=== PATIENT | male | born 1960 | race Caucasian/White ===

== ENCOUNTER 2020-07-09 10:50 | Outpatient (REF) | payer MEDICARE, MEDICAID, SELFPAY ==
--- NOTE | 2020-07-09 11:38 | XR_ITS ---
EXAMINATION: XR KNEE, LEFT CLINICAL INFORMATION: Left knee arthritis COMPARISON: None TECHNIQUE: AP standing view of both knees and sunrise and lateral view of the left knee of the left knee. FINDINGS: Left knee: There is slight varus angulation of the left knee joint. No fracture or dislocation is seen. There is severe arthritis of the medial patellofemoral and femoral tibial joints with joint space narrowing and osteophyte formation. The contour of the medial femoral condyle appears irregular questionable for changes related to old trauma. There is medial and lateral degenerative meniscal calcification. There is a large joint effusion. Standing AP view of the right knee is unremarkable. IMPRESSION: Severe left knee arthritis and large joint effusion.
== END 2020-07-09 10:51 | disposition home or self-care (01) ==
LOC: HO.XRAY 10:50
PROVIDERS: PCP Internal Medicine; Visit Provider Orthopaedic Surgery
DX: M17.12 Unilateral primary osteoarthritis, left knee (principal)
CPT/HCPCS: 20610; 73562; 99214; J1100

== ENCOUNTER 2020-08-31 08:36 | Outpatient (REF) | payer MEDICARE, MEDICAID, SELFPAY ==
[2020-08-31 09:15] LABS: MANUAL DIFF FLAG NO
--- NOTE | 2020-08-31 09:16 | MR_ITS ---
EXAMINATION: MR ABDOMEN WITHOUT AND WITH CONTRAST CLINICAL INFORMATION: Elevated bilirubin. Dilated bile ducts. COMPARISON: Previous MRI of the abdomen June 2020, abdominal ultrasound May [address] of the abdomen December 2012 TECHNIQUE: MR abdomen was performed without and with use of 10 mL intravenous Gadavist gadolinium contrast. Postcontrast images are performed in multiphase dynamic sequences. Imaging was performed in 3 planes. MRCP sequences were also performed. FINDINGS: LUNG BASES: The visualized lung bases are unremarkable. LIVER, GALLBLADDER, AND BILIARY TREE: The liver is normal in size, smooth in contour, and normal in signal. No focal hepatic lesion or biliary ductal dilatation is present. The gallbladder has been removed. There is intra and extrahepatic biliary duct dilatation. The common bile duct measures 1.5 cm. The common bile duct is dilated down to the head of the pancreas, and tapers smoothly. No common bile duct stone or mass is seen. PANCREAS: There are atrophic changes of the head and neck of the pancreas. The remaining body and tail of the pancreas is normal-appearing. This demonstrates normal signal and enhancement. No focal lesion or pancreatic duct dilatation is seen. SPLEEN: The spleen is enlarged measuring 15.0 cm in length. ADRENAL GLANDS: Normal. KIDNEYS AND URETERS: There is a small right renal cyst. GASTROINTESTINAL TRACT: No bowel obstruction. No ascites or fluid collection. ABDOMINAL WALL: No significant hernia is appreciated. LYMPH NODES: There are small periportal lymph nodes. No enlarged lymph nodes are seen. VASCULAR: Unremarkable. OSSEOUS STRUCTURES: There are postsurgical changes to the lower lumbar spine. MR/MR abdomen wo/w con IMPRESSION: 1. Intra and extrahepatic biliary duct dilatation. The common bile duct measures 1.5 cm and is dilated down to the head of the pancreas. The distal common bile duct tapers smoothly. No stone or mass is seen. Post cholecystectomy. 2. Atrophy of the head and neck of the pancreas. The pancreas is otherwise unremarkable. No main pancreatic duct dilatation seen.
[2020-08-31 09:17] LABS: Basophils Percent Auto 0.5 % (0-2); Eosinophils Absolute Auto 0.2 X10*3/uL (0.0-0.4); Eosinophils Percent Auto 2.8 % (0-4); Hematocrit 43.7 % (42-52); Hemoglobin 15.3 g/dl (14.0-18.0); Imm Gran Abs Auto 0.01 X10*3/uL (0.00-0.03); Imm Gran Pct Auto 0.2 % (0.0-0.4); Lymphocytes Absolute Auto 1.8 X10*3/uL (1.2-4.9); Lymphocytes Percent Auto 31.1 % (20-40); Mean Corpuscular Hemoglobin 32.8 pg (27.0-33.0); Mean Corpuscular Volume 93.6 fL (80-98); Mean Platelet Volume 8.9 fL (9.4-12.4); Monocytes Absolute Auto 0.5 X10*3/uL (0.1-1.2); Monocytes Percent Auto 9.5 % (2-11); Neutrophils Absolute Auto 3.2 X10*3/uL (2.0-8.3); Neutrophils Percent Auto 55.9 % (45-73); Platelet Count 144 X10*3/uL (160-400); Red Blood Count 4.67 X10*6/uL (4.60-5.80); Red Cell Distribution Width 12.7 % (11.0-16.0); White Blood Count 5.7 X10*3/uL (4.8-10.8)
[2020-08-31 09:53] LABS: Alanine Aminotransferase 17 U/L (0-40); Albumin Level 3.7 g/dL (3.5-5.0); Alkaline Phosphatase 95 U/L (39-117); Anion Gap 11 (12-20); Aspartate Amino Transferase 26 U/L (5-37); Bilirubin Direct 0.8 mg/dL (0.0-0.5); Bilirubin Total 2.5 mg/dL (0.0-1.0); Blood Urea Nitrogen 16 mg/dL (9-16); Carbon Dioxide 28 mmol/L (22-29); Chloride 105 mmol/L (96-108); Estimated Glomerular Filt Rate > 60; Glucose Random 99 mg/dL (60-115); Potassium 4.3 mmol/l (3.3-5.1); Sodium 140 mmol/L (135-145); Total Protein 7.2 g/dL (6.5-8.0)
== END 2020-08-31 08:37 | disposition home or self-care (01) ==
LOC: HO.MRI 08:36
PROVIDERS: PCP Internal Medicine; Visit Provider Physician Assistant
DX: R10.11 Right upper quadrant pain (principal); R17 Unspecified jaundice
CPT/HCPCS: 36415; 74183; 80053; 82248; 85025; A9585

== ENCOUNTER 2023-12-25 08:43 | Outpatient (REF) | payer MEDICARE, MEDICAID, SELFPAY ==
--- NOTE | ~2023-12-25 | XR_ITS ---
EXAM: X-RAY CERVICAL SPINE X-RAY RIGHT SHOULDER CLINICAL INFORMATION: Acute pain right shoulder, neck pain. COMPARISON: None. TECHNIQUE: 4 views of the cervical spine. 4 views of the right shoulder. FINDINGS: CERVICAL SPINE: Visualization of C5, C6 and C7 is severely limited due to overlying bony and soft tissue structures. Multilevel cervical spondylosis with advanced degenerative changes with loss of disc space height and hypertrophic change at C5-C6 and C6-C7 difficult to evaluate due to overlying bony and soft tissue structures. RIGHT SHOULDER: Moderate degenerative changes in the acromioclavicular joint with joint space narrowing and hypertrophic change. Moderate changes with hypertrophic change along the glenoid. XR/XR shoulder RT min 2V IMPRESSION: 1. Multilevel cervical spondylosis with advanced degenerative changes at C5-C6 and C6-C7 difficult to evaluate due to overlying bony and soft tissue structures. 2. Moderate degenerative changes in the right acromioclavicular joint and glenohumeral joint.
--- NOTE | ~2023-12-25 | XR_ITS ---
EXAM: X-RAY CERVICAL SPINE X-RAY RIGHT SHOULDER CLINICAL INFORMATION: Acute pain right shoulder, neck pain. COMPARISON: None. TECHNIQUE: 4 views of the cervical spine. 4 views of the right shoulder. FINDINGS: CERVICAL SPINE: Visualization of C5, C6 and C7 is severely limited due to overlying bony and soft tissue structures. Multilevel cervical spondylosis with advanced degenerative changes with loss of disc space height and hypertrophic change at C5-C6 and C6-C7 difficult to evaluate due to overlying bony and soft tissue structures. RIGHT SHOULDER: Moderate degenerative changes in the acromioclavicular joint with joint space narrowing and hypertrophic change. Moderate changes with hypertrophic change along the glenoid. XR/XR cervical spine 3V IMPRESSION: 1. Multilevel cervical spondylosis with advanced degenerative changes at C5-C6 and C6-C7 difficult to evaluate due to overlying bony and soft tissue structures. 2. Moderate degenerative changes in the right acromioclavicular joint and glenohumeral joint.
== END 2023-12-25 08:44 | disposition home or self-care (01) ==
LOC: HO.XRAY 08:43
PROVIDERS: PCP Internal Medicine; Visit Provider Internal Medicine
DX: M25.511 Pain in right shoulder (principal); M54.2 Cervicalgia
CPT/HCPCS: 72040; 73030